=== PATIENT | male | born 1990 | race Caucasian/White ===

== ENCOUNTER 2017-08-10 02:16 | Emergency (ER) | payer SELFPAY ==
[~2017-08-10 02:16] MED LIST: Haloperidol INJ IV/IM* 5 MG/ML AMP ONE; LORazepam INJ* 2 MG/ML 1 ML VIAL ONE; diPHENhydraMINE IV* 50 MG/ML 1 ml VIAL (BENADRYL) ONE
[2017-08-10] MEDS ORDERED: NS 0.9% 1000 ML* 1,000 ML IV ONE ×2 (02:22→07:05)
[2017-08-10] MEDS ORDERED: Tetan/Diph/Pertus SYR(Tdap)* 0.5 ML SYR(BOOSTRIX) use SYR IM ONE (02:23)
[2017-08-10] MEDS ORDERED: Diazepam SYRINGE* 5 MG/ML 2 ML SYRINGE (10 MG total) IV ONE (02:47)
[2017-08-10 03:00] LABS: ABS Basophils 0 10^3/ul (0-0.2); ABS Eosinophils 0.1 10^3/ul (0-0.6); ABS Lymphocytes 1.6 10^3/ul (1.0-4.8); ABS Neutrophils 6.1 10^3/ul (1.5-7.7); ABS Nucleated RBC 0 10^3/ul; Eosinophil % 1.5 % (0-6); Hematocrit 51 % (42-52); Hemoglobin 17.4 g/dl (14.0-18.0); Lymphocyte % 18.3 % (25-47); Mean Corpuscular HGB Conc 34 g/dl (31-36); Mean Corpuscular Hemoglobin 31 pg (27-31); Mean Corpuscular Volume 90 fL (80-94); Mean Platelet Volume 6 um3 (7.4-10.4); Nucleated Red Blood Cells % 0.1; Platelet Count 318 10^3/ul (150-450); Red Blood Count 5.65 10^6/ul (4.0-5.4); Red Cell Distribution Width 13 % (10.5-15); White Blood Count 8.9 10^3/ul (3.5-10.8)
[2017-08-10 03:16] LABS: EGFR Non-African American 92.2 (>60)
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
--- NOTE | 2017-08-10 07:47 | RAD ---
INDICATION: Fall COMPARISON: Intracranial injury TECHNIQUE: Noncontrast axial source images were acquired from the skull base to the vertex. FINDINGS: Ventricles/sulci: The ventricles and cisterns are normal in size and configuration for age. Brain parenchyma: There is no focal parenchymal finding, evidence of intracranial mass, or intracranial mass effect. Intracranial hemorrhage:None. Extra-axial spaces: There are no abnormal extra axial fluid collections or evidence of extra-axial mass. Calvarium: There is no calvarial fracture or other calvarial abnormality. Scalp: There is no evidence of scalp or extracalvarial soft tissue abnormality. Paranasal sinuses/mastoid: The paranasal sinuses and mastoid air cells are clear. Other: None. IMPRESSION: NEGATIVE EXAMINATION
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
[2017-08-10 12:32] VITALS: BP 000/00
== END 2017-08-10 12:29 | disposition home or self-care (01) ==
LOC: ED 02:16
DX: F10.129 Alcohol abuse with intoxication, unspecified (principal); S02.2XXA Fracture of nasal bones, initial encounter for closed fracture; X58.XXXA Exposure to other specified factors, initial encounter; Y92.9 Unspecified place or not applicable
CPT/HCPCS: 36415; 70450; 70486; 72125; 80053; 80320; 80329; 82550; 85025; 90715; 99285; G0480; J1200; J1630; J2060